=== PATIENT | male | born 1955 | race Caucasian/White ===

== ENCOUNTER 2020-09-09 07:25 | Inpatient (IN) | payer MEDICARE ==
[~2020-09-09] VITALS: Ht 182.9 cm; Wt 113.4 kg
[2020-09-09 09:31] LABS: HEMOGLOBIN 14.1 gm/dl (14.0-17.5); RED BLOOD COUNT 4.77 M/UL (4.20-5.50); WHITE BLOOD COUNT 12.1 K/UL (4.5-11.0)
[2020-09-09 09:51] LABS: BUN/CREATININE RATIO 8 (0-10)
[2020-09-09] MEDS ORDERED: VALIUM 10 MG TA10 MG PO (10:37)
[2020-09-09] MEDS ORDERED: ZESTRIL 40 MG T40 MG PO (10:37)
[2020-09-09] MEDS ORDERED: ATENOLOL25 MG PO (10:37)
[2020-09-09] MEDS ORDERED: TENORMIN25 MG PO (10:38)
[2020-09-09] MEDS ORDERED: SEROQUEL200 MG PO (10:40)
[2020-09-09] MEDS ORDERED: ASPIRIN EC81 MG PO (10:40)
[2020-09-09] MEDS ORDERED: GLUCOPHAGE500 MG PO (10:42)
[2020-09-09] MEDS ORDERED: VENLAFAXINE HC150 M1 PO (10:44)
[2020-09-09] MEDS ORDERED: OMEPRAZOLE20 M1 PO (10:47)
[2020-09-09] MEDS ORDERED: LIPITOR80 MG PO (10:51)
[2020-09-09] MEDS ORDERED: LANTUS SOL100 UNIT/1 SQ (10:54)
[2020-09-10 03:37] LABS: HEMOGLOBIN 12.9 gm/dl (14.0-17.5); RED BLOOD COUNT 4.42 M/UL (4.20-5.50); WHITE BLOOD COUNT 9.5 K/UL (4.5-11.0)
[2020-09-10 04:00] LABS: BUN/CREATININE RATIO 8 (0-10)
[2020-09-11 04:22] LABS: HEMOGLOBIN 13.5 gm/dl (14.0-17.5); RED BLOOD COUNT 4.57 M/UL (4.20-5.50); WHITE BLOOD COUNT 9.6 K/UL (4.5-11.0)
[2020-09-11 04:40] LABS: BUN/CREATININE RATIO 9 (0-10)
--- NOTE | 2020-09-11 13:40 | NUR ---
PT WENT TO SX AT 1315 NOTED GLUCOSE 119 JUST BEFORE HER LEFT NOTED
[2020-09-12 03:42] LABS: HEMOGLOBIN 12.4 gm/dl (14.0-17.5); RED BLOOD COUNT 4.28 M/UL (4.20-5.50); WHITE BLOOD COUNT 8.5 K/UL (4.5-11.0)
[2020-09-12 04:02] LABS: BUN/CREATININE RATIO 12 (0-10)
[2020-09-13 03:27] LABS: HEMOGLOBIN 11.3 gm/dl (14.0-17.5); RED BLOOD COUNT 3.87 M/UL (4.20-5.50); WHITE BLOOD COUNT 10.6 K/UL (4.5-11.0)
[2020-09-14] MEDS ORDERED: LOVENOX40 MG/0.4 SQ (11:07)
[2020-09-14] MEDS ORDERED: HYDROCODON-ACE1 EAC4 PO (11:07)
[2020-09-15 12:02] LABS: HEMOGLOBIN 12.3 gm/dl (14.0-17.5); RED BLOOD COUNT 4.21 M/UL (4.20-5.50); WHITE BLOOD COUNT 9.4 K/UL (4.5-11.0)
[2020-09-15] MEDS ORDERED: ENOXAPARIN40 MG/0.4 SC (12:11)
[2020-09-15] MEDS ORDERED: LANTUS INS100 UTS/M1 SQ (12:15)
[2020-09-15 12:21] LABS: BUN/CREATININE RATIO 11 (0-10)
[2020-09-16 05:23] LABS: HEMOGLOBIN 11.9 gm/dl (14.0-17.5); RED BLOOD COUNT 4.05 M/UL (4.20-5.50); WHITE BLOOD COUNT 9.4 K/UL (4.5-11.0)
[2020-09-16 05:51] LABS: BUN/CREATININE RATIO 11 (0-10)
--- NOTE | 2020-09-16 13:07 | NUR ---
CALLED REPORT TO [facility] , CALLED EMS AND FAXED PAPER , WAITING ON EMS
== END 2020-09-16 14:15 | DRG 956 ==
LOC: ER1 07:25 → MED SURG 4 09:56 → CDU 09:56 → MED SURG 4 12:17
PROVIDERS: Orthopaedic Surgery; Physician Assistant; ADMIT Internal Medicine
PROC: 0SRS0J9 Replacement of Left Hip Joint, Femoral Surface with Synthetic Substitute, Cemented, Open Approach (ICD-10-PCS; principal; 2020-09-11 13:30)
DX: S72.012A Unspecified intracapsular fracture of left femur, initial encounter for closed fracture (principal); S32.2XXA Fracture of coccyx, initial encounter for closed fracture; E87.1 Hypo-osmolality and hyponatremia; I10 Essential (primary) hypertension; E78.5 Hyperlipidemia, unspecified; Z20.822 Contact with and (suspected) exposure to COVID-19; E11.9 Type 2 diabetes mellitus without complications; G47.33 Obstructive sleep apnea (adult) (pediatric); K21.9 Gastro-esophageal reflux disease without esophagitis; D64.9 Anemia, unspecified; W01.0XXA Fall on same level from slipping, tripping and stumbling without subsequent striking against object, initial encounter; J44.9 Chronic obstructive pulmonary disease, unspecified; F17.210 Nicotine dependence, cigarettes, uncomplicated; F39 Unspecified mood [affective] disorder; Z79.4 Long term (current) use of insulin; Z80.9 Family history of malignant neoplasm, unspecified
CPT/HCPCS: 36415; 71045; 72170; 72220; 73502; 73552; 80048; 80053; 82962; 83036; 85025; 85610; 93005; 96372; 96374; 96375; 97110; 97110-GP-CQ; 97116; 97116-GP-CQ; 97161; 97165; 97530; 97530-GP-CQ; 97535; 99284; C1776; J0690; J1100; J1650; J2001; J2270; J2405; J2704; J2710; J3010; J7120; U0002